=== PATIENT | female | born 1940 | race Caucasian/White ===

== ENCOUNTER 2020-02-21 19:43 | Inpatient (IN) | payer MEDICARE ==
[~2020-02-21] VITALS: Ht 157.5 cm; Wt 52.5 kg
[2020-02-21 20:00] VITALS: BP 119/48
[2020-02-21] MEDS ORDERED: ASPIRIN81 MG PO ×2 (20:14→20:28)
[2020-02-21] MEDS ORDERED: COREG12.5 MG PO ×2 (20:15→20:29)
[2020-02-21] MEDS ORDERED: LIPITOR40 MG PO ×2 (20:15→20:29)
[2020-02-21] MEDS ORDERED: COREG25 MG PO ×2 (20:17→20:29)
[2020-02-21] MEDS ORDERED: CELEXA20 MG PO (20:17)
[2020-02-21] MEDS ORDERED: FENOFIBRATE160 MG PO (20:18)
[2020-02-21] MEDS ORDERED: FERROUS SULFAT325 MG PO (20:18)
[2020-02-21] MEDS ORDERED: ALENDRONATE SOD35 MG PO (20:19)
[2020-02-21] MEDS ORDERED: MEGACE400 MG/10 PO (20:20)
[2020-02-21] MEDS ORDERED: REMERON15 MG PO (20:20)
[2020-02-21] MEDS ORDERED: ASCORBIC ACID500 MG PO (20:20)
[2020-02-21] MEDS ORDERED: VITAMIN D1000 UNIT (20:21)
[2020-02-21] MEDS ORDERED: CIPRO500 MG PO (20:21)
[2020-02-21] MEDS ORDERED: FAMOTIDINE10 MG PO (20:21)
[2020-02-21] MEDS ORDERED: GLUCOPHAGE500 MG PO (20:22)
[2020-02-21] MEDS ORDERED: GABAPENTIN300 MG PO (20:23)
[2020-02-21] MEDS ORDERED: VOLTAREN100 GM TOPICAL (20:23)
[2020-02-21] MEDS ORDERED: LANTUS INS100 UNITS/ SC (20:26)
[2020-02-21 20:27] LABS: BASOPHILS 0.2 % (0-2); EOSINOPHILS 1.1 % (0-7); HEMATOCRIT 30.7 % (36.0-48.0); HEMOGLOBIN 9.8 g/dL (12-16); IMMATURE GRANULOCYTES 1.1 % (0-5); LYMPHOCYTES 14.9 % (15-50); MCH 32.2 pg (26.0-34.0); MCHC 31.9 g/dL (31.0-37.0); MEAN PLATELET VOLUME 8.9 fL (7.4-10.4); MONOCYTES 6.6 % (2-11); NEUTROPHILS 76.1 % (40-80); PLATELET COUNT 298 10x3/uL (130-400); RBC 3.04 10x6/uL (4.00-5.40); WBC 11.4 10x3/uL (4.8-10.8)
[2020-02-21] MEDS ORDERED: HUMULIN R100 UNIT/1 (20:27)
[2020-02-21] MEDS ORDERED: ASPIRIN81 MG (20:30)
[2020-02-21 20:37] LABS: CALC OSMOLALITY 288 mosm/kg (275-300); CALCIUM 8.4 mg/dL (8.5-10.1); CARBON DIOXIDE 27.8 mmol/L (21.0-32.0); CHLORIDE - SERUM 110 mmol/L (98-107); CREATININE - SERUM 0.9 mg/dL (0.6-1.3); GLUCOSE 104 mg/dL (74-106); POTASSIUM - SERUM 3.5 mmol/L (3.5-5.1); SODIUM 144 mmol/L (136-145); UREA NITROGEN 19 mg/dL (7-18); eGFR NON AFRICAN AMERICAN 64 mL/min (90-120)
[2020-02-21 20:45] LABS: ALBUMIN 2.1 g/dL (3.4-5.0); ALKALINE PHOSPHATASE 82 U/L (30-120); ALT (SGPT) 45 U/L (10-68); AMYLASE - SERUM 69 U/L (25-115); BILIRUBIN - TOTAL 0.23 mg/dL (0.2-1.3); LIPASE 73 U/L (73-393); PROTEIN - SERUM 6.1 g/dL (6.4-8.2)
--- NOTE | 2020-02-21 20:45 | NUR ---
URINE SPECIMEN SENT TO LAB
[2020-02-21 20:46] LABS: TROPONIN-I < 0.017 ng/mL (0.000-0.060)
[2020-02-21 20:53] LABS: BILIRUBIN NEGATIVE (NEGATIVE); GLUCOSE 250 mg/dL (NEGATIVE); KETONE NEGATIVE (NEGATIVE); NITRITE NEGATIVE (NEGATIVE); SPECIFIC GRAVITY 1.015 (1.005-1.020); UROBILINOGEN NORMAL (NORMAL)
[2020-02-21 20:54] LABS: BACTERIA MODERATE /hpf (NEGATIVE); EPITHELIAL CELLS NSEEN /hpf (0-5); RED CELLS - URINE 0-5 /hpf (0-5); WHITE CELLS - URINE >50 /hpf (NEGATIVE)
--- NOTE | 2020-02-21 21:00 | NUR ---
PT LEFT ED VIA STRETCHER FOR CT
[2020-02-21 22:00] VITALS: BP 146/70
--- NOTE | 2020-02-21 22:30 | NUR ---
NAM CATH PLACED. PT TOLERATED WELL. PT RESTING ON SIDE. NO S/S OF ACUTE DISTRESS NOTED
[2020-02-21 23:00] VITALS: BP 132/59
--- NOTE | 2020-02-21 23:00 | NUR ---
PT RESTING ON BED. NO S/S OF ACUTE DISTRESS NOTED.
--- NOTE | 2020-02-21 23:56 | NUR ---
MERREM INFUSION COMPLETE AT THIS TIME
--- NOTE | 2020-02-22 01:17 | NUR ---
PT ARRIVED TO ROOM VIA BED. ALERT TO SELF. C/O ABD AND BACK PAIN. NEW 22G PIV RESITED TO LEFT FA X2 ATTEMPTS. FLUIDS INFUSING ORDERED. CALL LIGHT IN REACH. WILL CPOC.
[2020-02-22 01:50] VITALS: BP 150/73; BMI 20.5
[2020-02-22 05:01] LABS: BASOPHILS 0.2 % (0-2); EOSINOPHILS 1.6 % (0-7); HEMATOCRIT 29.9 % (36.0-48.0); HEMOGLOBIN 9.3 g/dL (12-16); IMMATURE GRANULOCYTES 1.6 % (0-5); LYMPHOCYTES 15.4 % (15-50); MCH 31.6 pg (26.0-34.0); MCHC 31.1 g/dL (31.0-37.0); MCV 101.7 fL (80.0-100.0); MEAN PLATELET VOLUME 9.1 fL (7.4-10.4); MONOCYTES 6.7 % (2-11); NEUTROPHILS 74.5 % (40-80); PLATELET COUNT 321 10x3/uL (130-400); RBC 2.94 10x6/uL (4.00-5.40); WBC 12.2 10x3/uL (4.8-10.8)
[2020-02-22 05:11] LABS: CALC OSMOLALITY 285 mosm/kg (275-300); CALCIUM 7.9 mg/dL (8.5-10.1); CARBON DIOXIDE 25.8 mmol/L (21.0-32.0); CHLORIDE - SERUM 110 mmol/L (98-107); CREATININE - SERUM 0.7 mg/dL (0.6-1.3); GLUCOSE 109 mg/dL (74-106); POTASSIUM - SERUM 3.1 mmol/L (3.5-5.1); SODIUM 143 mmol/L (136-145); eGFR NON AFRICAN AMERICAN 86 mL/min (90-120)
[2020-02-22 05:12] LABS: UREA NITROGEN 13 mg/dL (7-18)
--- NOTE | 2020-02-22 07:27 | NUR ---
PT ALERT AND ORIENTED, LYING IN BED ON RIGHT SIDE. SHE WAS SLEEPING PEACEFULLY WHEN I ENTERED ROOM WITH MEDICATIONS. UPON COMING AWAKE, PT BEGAN CRYING AND MOANING THAT SHE WAS IN PAIN. WILL ADMIN PAIN MEDICATION WHEN NEXT AVALIABLE. NO OTHER COMPLAINTS OR CONCERNS STATED, CL IN REACH,S RX2.
--- NOTE | 2020-02-22 09:29 | NUR ---
PT HAS BEEN CRYING FOR THE LAST HOUR, ADMINISTERED PAIN MEDICATIONS PER MD ORDER. SPOKE WITH RENATE MANDUJANO THIS DID NOT SEEM TO ALEVIATE THE PAIN. ORDERING NEW PAIN MEDICATION. CL IN REACH, SRX2.
[2020-02-22 10:12] VITALS: BP 144/64
--- NOTE | 2020-02-22 11:40 | NUR ---
I have reviewed this patient and I concur with the Shift Assessment completed by the Licensed Practical Nurse today this shift.
--- NOTE | 2020-02-22 12:16 | NUR ---
PT HAS CRIED NONSTOP FOR HOURS NOW, EVEN POST DILAUDID ADMINISTRATION. WHEN I ASKED PT HOW I COULD HELP SHE STATED "I DONT KNOW" AND THEN CRIED HARDER. ATTEMPTED TO CONSOLE IN VARIOUS WAYS, TRIED TO ASSIST WITH HER FOOD WELL. PT REFUSED TO EAT AND NO MEASURES WERE HELPING. INFORMED RENATE MANDUJANO.
[2020-02-22 13:04] VITALS: BP 128/59
--- NOTE | 2020-02-22 14:14 | NUR ---
PT TOOK HOME MEDICATIONS WHOLE IN PUDDING WITHOUT DIFFICULTY. SHE IS STILL CRYING. TRIED AGAIN TO COMFORT BUT NO METHODS ARE WORKING. CL INR EACH, SRX2.
--- NOTE | 2020-02-22 15:54 | NUR ---
PT FINALLY RESTING PEACEFULLY. HAS BEEN FOR ABOUT 30 MINUTES, PRIOR TO THIS SHE CRIED FOR 6 HOURS WITH VERY FEW STOPS IN BETWEEN. BREATHS EVEN REGUALR AND UNLABORED. CL INR EACH, SRX2.
--- NOTE | 2020-02-22 16:11 | NUR ---
PT IS AWAKE AND CRYING PERFUSELY ONCE AGAIN. SPOKE WITH DR. CHIN ON THE PHONE AND AGAIN ASKED WHAT I COULD DO TO HELP. HE STATED THAT IT IS EMOTIONAL DISTURBANCE FROM THE STROKE AND THAT THREE IS NOTHING WE CAN DO AT THIS TIME. CONSULTING DR. CROW PER HIS ORDER.
--- NOTE | 2020-02-22 17:58 | NUR ---
PT IS STILL ACTIVELY CRYING, RESTED PEACFULLY FOR ABOUT 15 MINUTES POST PAIN MED ADMINISTRATION. CL IN REACH, SRX2.
[2020-02-22 18:53] VITALS: BP 135/62
[2020-02-22 20:30] VITALS: BP 141/69
--- NOTE | 2020-02-22 23:13 | NUR ---
PT HAS BEEN RESTING PEACFULLY, IS NOT CRYING AT THIS TIME. RR EVEN AND UNLABORED. NO DISTRESS OBSERVED. NO NEEDS EXPREESED. CALL LIGHT IN REACH. WILL CPOC.
[2020-02-23 00:30] VITALS: BP 144/88
[2020-02-23 04:30] VITALS: BP 137/69
--- NOTE | 2020-02-23 07:30 | NUR ---
REPORT RECEIVED. ASSESSMENT COMPLETE PER FLOW SHEET. REFER FOR COMPLETE FINDINGS. PT CONFUSED X3 ATTEMPT TO REORIENT UNABLE TO STATE UNDERSTANDING. ATTEMPT TO CALL SON PER REQUEST WITH NO ANSWER. PT EDUCATION GIVEN TO STAY IN BED BED ALARM ON NO SLIP SOCKS WITHIN USE SIDE RAIL UP X2 CALL LIGHT WITHIN REACH.
[2020-02-23 10:37] VITALS: BP 106/47
[2020-02-23 11:53] VITALS: BMI 20.5
[2020-02-23 11:58] VITALS: Ht 157.5 cm; Wt 52.5 kg
[2020-02-23 13:55] LABS: HEMATOCRIT 32.1 % (36.0-48.0); MCH 31.7 pg (26.0-34.0); MCHC 31.2 g/dL (31.0-37.0); MCV 101.9 fL (80.0-100.0); MEAN PLATELET VOLUME 9.4 fL (7.4-10.4); PLATELET COUNT 365 10x3/uL (130-400); RBC 3.15 10x6/uL (4.00-5.40); RDW 14.2 % (11.5-14.5); WBC 10.7 10x3/uL (4.8-10.8)
[2020-02-23 13:59] LABS: ANION GAP 10.6 mmol/L (8-16); CALCIUM 7.8 mg/dL (8.5-10.1); CARBON DIOXIDE 24.9 mmol/L (21.0-32.0); CREATININE - SERUM 0.8 mg/dL (0.6-1.3); POTASSIUM - SERUM 3.5 mmol/L (3.5-5.1)
[2020-02-23 14:39] LABS: ANISOCYTOSIS OCC; BASOPHILS 1 % (0-2); EOSINOPHILS 1 % (0-7); LYMPHOCYTES 16 % (15-50); MONOCYTES 6 % (2-11); NEUTROPHILS 73 % (40-80); PLATELET ESTIMATE INCREASED
--- NOTE | 2020-02-23 19:16 | NUR ---
PT SEEMS CONFUSED WITH TIME AND SITUATION PT ATTEMPT TO GRAB AT MY NECK AND SAYS YOU HAVE NOT BEEN HERE IS THREE MONTHS PT IS NOW CRYING AND IO CAN NOT MAKE OUT WORDS BED LOW AND LOCKED CALL LIGHT IS WITH PT
[2020-02-23 19:47] VITALS: BP 138/89
--- NOTE | 2020-02-23 20:03 | NUR ---
PT TOLD TECH SHE WAS HURTING AND THAT I WOULD NOT GIVE HER PAIN MED PTY HAD NOT INFORMED ME OF HER PAIN DILAUDED GIVEN AT THIS TIME
--- NOTE | 2020-02-23 23:21 | NUR ---
CLEANED PT OF URINE CHECKED NAM PLACEMENT AND FLUSHED NAM WITH RETURN AND IN PLACE ABD IS NOT FIRM BUT PT CONTINUES TO MOAN IN PAIN AND CRY ATTEMPTED BED AYALA BUT PT CO BUTTOCK PAIN CLEANED AND TURNED PT
--- NOTE | 2020-02-23 23:23 | NUR ---
YUKO NOTED PT DOES NOT CRY UNTILL I ENTER THE ROOM
[2020-02-24 00:26] VITALS: BP 123/66
--- NOTE | 2020-02-24 05:51 | NUR ---
PT IMEDIATELY BEGINS TO WHIMPER LOUDLY BECOMING LOUDER WHEN I ENTER ROOM IM CONCERNED WITH HOW OFTEN SHE IS REQUIRING DILAUDID...AND SHE RANKS THE PAIN 10 EVERY TIME ASKED IM GOING TO TRY [place] IN
--- NOTE | 2020-02-24 07:00 | NUR ---
RECEIVED REPORT. ASSUMED CARE OF PATIENT. PATIENT RESTING IN BED, CONFUSED. CALL LIGHT WITHIN REACH. PATIENT STATES SHE FEELS OKAY THIS AM. BEDSIDE SHIFT REPORT COMPLETE. WHITE BOARD UPDATED, NO DISTRESS.
[2020-02-24 07:22] LABS: BASOPHILS 0.2 % (0-2); EOSINOPHILS 1.3 % (0-7); HEMATOCRIT 32.9 % (36.0-48.0); HEMOGLOBIN 10.3 g/dL (12-16); IMMATURE GRANULOCYTES 0.9 % (0-5); LYMPHOCYTES 14.6 % (15-50); MCH 31.8 pg (26.0-34.0); MCHC 31.3 g/dL (31.0-37.0); MCV 101.5 fL (80.0-100.0); MEAN PLATELET VOLUME 9.1 fL (7.4-10.4); MONOCYTES 10.2 % (2-11); NEUTROPHILS 72.8 % (40-80); PLATELET COUNT 355 10x3/uL (130-400); RBC 3.24 10x6/uL (4.00-5.40); RDW 14.2 % (11.5-14.5); WBC 8.4 10x3/uL (4.8-10.8)
[2020-02-24 07:36] LABS: CALC OSMOLALITY 290 mosm/kg (275-300); CALCIUM 7.9 mg/dL (8.5-10.1); CARBON DIOXIDE 22.2 mmol/L (21.0-32.0); CHLORIDE - SERUM 111 mmol/L (98-107); CREATININE - SERUM 0.7 mg/dL (0.6-1.3); GLUCOSE 152 mg/dL (74-106); POTASSIUM - SERUM 3.6 mmol/L (3.5-5.1); SODIUM 144 mmol/L (136-145); UREA NITROGEN 15 mg/dL (7-18); eGFR NON AFRICAN AMERICAN 86 mL/min (90-120)
--- NOTE | 2020-02-24 08:30 | NUR ---
SPOKE WITH ELDA HAHN DUE TO PATIENT COMPLAIN OF ABD PAIN, PATIENT WITH NAM CATHETER THAT IS LEAKING URINE AND NOTED THAT PREVIOUS UA COLLECTED WAS CONTAMINATED. WAITING FOR NEW ORDERS.
[2020-02-24 09:00] VITALS: BP 183/82
--- NOTE | 2020-02-24 10:50 | NUR ---
NEW ORDERS ACKNOWLEDGED FROM ELDA HAHN. BLADDER SCAN COMPLETE WITH 448ML IN BLADDER. NAM CATHETER REMOVED AND NOTED TO HAVE A LARGE STRINGY MUCOUS CLOT TO TIP OF CATHETER. 16FR NAM CATHETER PLACED VIA STERILE TECHNIQUE AND IMMEDIATELY RECEIVED 500 ML CLOUDY YELLOW URINE TO DRAINAGE BAG VIA GRAVITY. UA AND CULTURE OBTAINED FROM STERILE NEW NAM AND SENT TO LAB. PATIENT RESTING WITH EYES CLOSED AT THIS TIME. PATIENT STATES HER BELLY FEELS BETTER ALREADY. PATIENT IS RESTING PEACEFULLY. NO DISTRESS.
[2020-02-24 11:21] LABS: BACTERIA MODERATE /hpf (NEGATIVE); BILIRUBIN NEGATIVE (NEGATIVE); EPITHELIAL CELLS RARE /hpf (0-5); GLUCOSE 250 mg/dL (NEGATIVE); KETONE NEGATIVE (NEGATIVE); NITRITE NEGATIVE (NEGATIVE); UROBILINOGEN NORMAL (NORMAL); WHITE CELLS - URINE >50 /hpf (NEGATIVE)
[2020-02-24 11:22] LABS: AMORPHOUS SEDIMENT <1+ /lpf (NONE SEEN)
[2020-02-24 12:00] VITALS: BP 129/60
--- NOTE | 2020-02-24 15:00 | CN ---
PATIENT NAME:KAREN BURR MEDICAL RECORD: [id number] : 44 LOCATION:[facility] D.2108 ADMIT DATE: 02/21/20 ACCOUNT: [id number] CONSULTING PHYSICIAN: RIGO KATZ MD REFERRING PHYSICIAN: MARGOTH CHIN MD DATE OF CONSULTATION: 02/23/2020 IDENTIFYING DATA: The patient is 79 years old and she was admitted to the hospital secondary to urinary tract infection. CHIEF COMPLAINT: Confusion and agitation. HISTORY OF PRESENT ILLNESS: The patient is cooperative. She had a stroke about 3 weeks ago. She currently is not fully oriented and has had a great deal of mood lability. She does not have thoughts of harming herself or others. ASSESSMENT: Vascular dementia. PLAN: The patient will have her Remeron discontinued secondary to its strong antihistaminic properties. In addition to this, I am going to treat her with Trilafon for thought disorganization and a low dose of Klonopin for mood lability. I will continue to follow her and monitor her progress. TRANSINT:[id number] Voice Confirmation ID: [id number] DOCUMENT ID: [id number] RIGO KATZ MD at 1500 CC: [id number] DICTATION DATE: 02/23/20 1450 GENERAL DOC: 02/23/20 1645 ADM IN [id number] [place] [address]
[2020-02-24 16:47] VITALS: BP 126/57
--- NOTE | 2020-02-24 17:00 | NUR ---
PATIENTS SON AT BEDSIDE FOR A VISIT.
--- NOTE | 2020-02-24 17:51 | NUR ---
PATIENT CONSUMED 1/2 GLUCERNA FOR THIS CUSTODIAN ATHLETIC EQUIPMENT. NO DISTRESS. RESTING WELL. NO CRYING OUT. FC DRAINING YELLOW URINE WITH SEDEMENT NOTED, NO FURTHER LEAKING OF URINE AFTER CHANGING NAM CATHETER THIS AM.
--- NOTE | 2020-02-24 19:30 | NUR ---
PT IN BED, EYES CLOSED, RESP EVEN AND UNLABORED, NO DISTRESS NOTED, CL IN REACH, SR UP X 2. BED ALARM ON AT THIS TIME.
[2020-02-24 19:48] VITALS: BP 132/64
--- NOTE | 2020-02-25 02:38 | NUR ---
I have reviewed this patient and I concur with the Shift Assessment completed by the Licensed Practical Nurse today this shift.
[2020-02-25 04:55] VITALS: BP 118/51
[2020-02-25 06:14] LABS: BASOPHILS 0.3 % (0-2); EOSINOPHILS 0.5 % (0-7); HEMATOCRIT 30.2 % (36.0-48.0); HEMOGLOBIN 9.7 g/dL (12-16); IMMATURE GRANULOCYTES 0.5 % (0-5); LYMPHOCYTES 17.1 % (15-50); MCHC 32.1 g/dL (31.0-37.0); MCV 99.7 fL (80.0-100.0); MONOCYTES 7.7 % (2-11); NEUTROPHILS 73.9 % (40-80); PLATELET COUNT 415 10x3/uL (130-400); RBC 3.03 10x6/uL (4.00-5.40); RDW 14.4 % (11.5-14.5); WBC 7.8 10x3/uL (4.8-10.8)
[2020-02-25 06:31] LABS: CALC OSMOLALITY 285 mosm/kg (275-300); CALCIUM 8.1 mg/dL (8.5-10.1); CARBON DIOXIDE 24.5 mmol/L (21.0-32.0); CHLORIDE - SERUM 110 mmol/L (98-107); CREATININE - SERUM 0.7 mg/dL (0.6-1.3); GLUCOSE 75 mg/dL (74-106); POTASSIUM - SERUM 3.5 mmol/L (3.5-5.1); SODIUM 145 mmol/L (136-145); UREA NITROGEN 8 mg/dL (7-18); eGFR NON AFRICAN AMERICAN 86 mL/min (90-120)
[2020-02-25 09:53] VITALS: BP 149/68
--- NOTE | 2020-02-25 09:57 | MORECARE ---
CASE MANAGEMENT DISCHARGE SUMMARY PATIENT: KAREN BURR UNIT: [id number] ADM DATE: 02/21/20 AGE: 79 : 42 SEX: F ROOM/BED: D.9016 AUTHOR: NOE ARCE PHYSICIAN: REFERRING PHYSICIAN: MARGOTH CHIN MD DATE OF SERVICE: 02/25/20 Discharge Plan Patient Name: KAREN BURR [facility] [facility] 1940 Planned Disposition: SNF w Planned Readmission Anticipated Discharge Date: Discharge Date: Expected LOS: Initial Reviewer: [email or web address] Initial Review Date: 02/25/2020 Generated: 02/25/20 10:56 am External Providers External Provider: [facility] Next Contact Date: Service Request Date: Service Type: Resolution: Reviewer: Comments: Patient Name: KAREN BURR Page 07743 at 0957 All edits/amendments must be made on the electronic document DICTATION DATE: 02/25/2056 HEADING UP MACHINE OPERATOR: RICHARD 02/25/20 0956 RPT#: [id number] DC DATE: STATUS: ADM IN [facility] [address] [place] [address] END OF REPORT
--- NOTE | 2020-02-25 10:03 | MORECARE ---
CASE MANAGEMENT DISCHARGE SUMMARY PATIENT: KAREN BURR UNIT: [id number] ADM DATE: 02/21/20 AGE: 79 : 42 SEX: F ROOM/BED: D.2107 AUTHOR: NOE ARCE PHYSICIAN: REFERRING PHYSICIAN: MARGOTH CHIN MD DATE OF SERVICE: 02/25/20 Discharge Plan Patient Name: KAREN BURR [facility] [facility] 1940 Planned Disposition: SNF w Planned Readmission Anticipated Discharge Date: Discharge Date: Expected LOS: Initial Reviewer: [email or web address] Initial Review Date: 02/25/2020 Generated: 02/25/20 11:03 am DCPIA - Discharge Planning Initial Assessment Updated by [email or web address]: Babs Bailey on 02/25/20 9:57 am * Is the patient Alert and Oriented? No * How many steps to enter\exit or inside your home? 0/0 * PCP Dr. Rodriguez * Pharmacy [facility] * Preadmission Environment Shelter Facility * Facility Name [facility] * ADLs Partial Dependent * Partial ADLs (Assistance needed) Ambulation Bathing Dressing Medication Management Toileting Transfers * Equipment None * List name and contact numbers for known caregivers / representatives who currently or will assist patient after discharge: Zaid blankenship - [phone] * Verbal permission to speak to the caregivers and representatives has been obtained from the patient. Yes * Community resources currently utilized None * Additional services required to return to the preadmission environment? No * Can the patient safely return to the preadmission environment? Yes * Has this patient been hospitalized within the prior 30 days at any hospital? Yes Last DP export: 02/25/20 8:57 a Patient Name: KAREN BURR Page 66028 at 1003 All edits/amendments must be made on the electronic document DICTATION DATE: 02/25/20 1003 GAS MASK INSPECTOR: RICHARD 02/25/20 1003 RPT#: [id number] DC DATE: STATUS: ADM IN [facility] [address] [id number] END OF REPORT
--- NOTE | 2020-02-25 10:10 | MORECARE ---
CASE MANAGEMENT DISCHARGE SUMMARY PATIENT: KAREN BURR UNIT: [id number] ADM DATE: 02/21/20 AGE: 79 : 42 SEX: F ROOM/BED: D.6021 AUTHOR: CLAUDE,DOC PHYSICIAN: REFERRING PHYSICIAN: MARGOTH CHIN MD DATE OF SERVICE: 02/25/20 Discharge Plan Patient Name: KAREN BURR Facility: [facility]:[place] : 1940 Planned Disposition: SNF w Planned Readmission Anticipated Discharge Date: Discharge Date: Expected LOS: Initial Reviewer: [email or web address] Initial Review Date: 02/25/2020 Generated: 02/25/20 11:10 am Comments DCP- Discharge Planning Updated by [email or web address]: Babs Bailey on 02/25/20 9:[address] Patient Name: KAREN BURR Admission Status: ER Accout number: [id number] Admission Date: 02-21-2020 : 1940 Admission Diagnosis: Attending: MARGOTH CHIN Current LOS: 4 Anticipated DC Date: Planned Disposition: SNF w Planned Readmission Primary Insurance: [employer] CHOICE PPO MCR ADVANT Discharge Planning Comments: CM met with patient to discuss discharge planning/needs. She tells me she has been at [facility] "for awhile". I called her contact, Zaid Rider (son), for discharge planning/needs. He states she has been at [facility] for rehab for the last 4 days. He states plan is to return to [facility]. I informed the son that she would need to participate in therapy in order to return to [facility]. He states he will visit with her today and speak with her about that. I have ordered PT and OT evaluations. CM will continue to follow and assist with discharge planning/needs. Insurance Claims Supervisor: Babs Bailey DCPIA - Discharge Planning Initial Assessment Updated by [id number]: Babs Bailey on 02/25/20 9:57 am * Is the patient Alert and Oriented? No * How many steps to enter\\exit or inside your home? 0/0 * PCP Dr. Rodriguez * Pharmacy [facility] [address] * Preadmission Environment Assisted Facility [facility] * ADLs Partial Dependent * Partial ADLs (Assistance needed) Ambulation Bathing Dressing Medication Management Toileting Transfers * Equipment None * List name and contact numbers for known caregivers / representatives who currently or will assist patient after discharge: Zaid Rider - son - [phone] * Verbal permission to speak to the caregivers and representatives has been obtained from the patient. Yes * Community resources currently utilized None * Additional services required to return to the preadmission environment? No * Can the patient safely return to the preadmission environment? Yes * Has this patient been hospitalized within the prior 30 days at any hospital? Yes Coverage Notice Reviewer: [id number] Joseph Bailey Notice Issued Date-Time: 02/25/2020 10:04 Notice Type: Patient Choice Letter Notice Delivered To: Family Member Relationship to Patient: Son Low Voltage Technician Name: Zaid Rider Delivery Method: PHONE - Phone Jennifer Days: Prior Verbal Notification: Recipient Understood Notice: Yes Recipient Signature: Med Rec Note Co-signed by Attending: Coverage Notice Comment: [facility] Last DP export: 02/25/20 9:03 a Patient Name: KAREN BURR Page [phone] at 1010 All edits/amendments must be made on the electronic document DICTATION DATE: 02/25/20 1010 ACADEMIC SUPPORT ASSISTANT: RICHARD 02/25/20 1010 RPT#: [id number] DC DATE: STATUS: ADM IN [facility] [address] [place] [address] END OF REPORT
--- NOTE | 2020-02-25 11:24 | NUR ---
Nutrition Follow-up: Pt confused. Sitting up in bed eating breakfast this AM. Noted pt with 0-25% intake of meals yesterday; drank 1/2 Glucerna yesterday evening. Noted ST eval pending. Diet: Diabetic, Mech Soft PO intake: 42% avg x 6 meals Wt: 165# (02/24); 112.2# (02/22) Last BM: 02/23 Labs noted: Ca 8.1, Na 145 Meds noted: Glucophage, Miralax, Megace, Lantus, NS @ 50, electrolyte protocol -Encourage PO intake and honor food preferences within diet restrictions. -+Glucerna with meals. -Monitor wt; noted daily wts ordered. -RD following.
[2020-02-25 13:33] VITALS: BP 114/50
--- NOTE | 2020-02-25 14:51 | PN ---
PATIENT:KAREN BURR MEDICAL RECORD: [id number] LOCATION:D.[facility].210 ADMISSION DATE: 02/21/20 PROGRESS NOTE DATE OF SERVICE: 02/24/2020 SUBJECTIVE: The patient's case was discussed with staff. She has no new complaint. OBJECTIVE: The patient denies intent to harm herself or others. She is still very disorganized with poor insight about her situation. ASSESSMENT: Vascular dementia. PLAN: Current medicines have been reviewed and will be maintained. Long-term prognosis is guarded. TRANSINT:[id number] Voice Confirmation ID: [id number] DOCUMENT ID: [id number] RIGO KATZ MD at 1451 CC: [id number] DICTATION DATE: 02/24/20 1615 SUBSEA ENGINEER: 02/25/20 0025 ADM IN [facility] [address] [place] [address]
--- NOTE | 2020-02-25 15:52 | NUR ---
I have reviewed this patient and I concur with the Shift Assessment completed by the Licensed Practical Nurse today this shift.
--- NOTE | 2020-02-25 15:54 | NUR ---
BED BATH GIVEN AND COMPLETE LINEN CHANGE DONE.
--- NOTE | 2020-02-25 16:02 | NUR ---
MEPILEX TO COCCYX CHANGED.
--- NOTE | 2020-02-25 16:09 | NUR ---
FSBS 341. PT JUST ATE SOME GRHAMA CRACKERS. WILL CONTINUE TO MONITOR.
--- NOTE | 2020-02-25 18:58 | NUR ---
PT TEARFUL AND STATING SHE IS HURTING. DILAUDID GIVEN.
[2020-02-25 20:00] VITALS: BP 116/57
[2020-02-26] VITALS: BP 140/66
[2020-02-26 04:50] LABS: BASOPHILS 0.2 % (0-2); EOSINOPHILS 1.1 % (0-7); HEMATOCRIT 28.2 % (36.0-48.0); HEMOGLOBIN 8.9 g/dL (12-16); IMMATURE GRANULOCYTES 0.5 % (0-5); LYMPHOCYTES 21.8 % (15-50); MCH 31.6 pg (26.0-34.0); MCHC 31.6 g/dL (31.0-37.0); MEAN PLATELET VOLUME 8.8 fL (7.4-10.4); MONOCYTES 9.9 % (2-11); NEUTROPHILS 66.5 % (40-80); PLATELET COUNT 360 10x3/uL (130-400); RBC 2.82 10x6/uL (4.00-5.40); RDW 14.4 % (11.5-14.5)
[2020-02-26 05:04] LABS: CALCIUM 8.4 mg/dL (8.5-10.1); CARBON DIOXIDE 27.6 mmol/L (21.0-32.0); CHLORIDE - SERUM 108 mmol/L (98-107); CREATININE - SERUM 0.7 mg/dL (0.6-1.3); POTASSIUM - SERUM 3.2 mmol/L (3.5-5.1); SODIUM 142 mmol/L (136-145); eGFR NON AFRICAN AMERICAN 86 mL/min (90-120)
[2020-02-26 05:08] LABS: CALC OSMOLALITY 283 mosm/kg (275-300); GLUCOSE 137 mg/dL (74-106); UREA NITROGEN 11 mg/dL (7-18)
[2020-02-26 05:12] LABS: WBC 5.6 10x3/uL (4.8-10.8)
--- NOTE | 2020-02-26 07:30 | NUR ---
PT RESTING COMFORTABLY , EYES CLSOED, BREATHS EVEN/REGULAR/UNLABORED. NO SIGNS OR SYMPTOMS OF ACUTE DISTRESS NOTED AT THIS TIME. CL IN REACH,S RX2, BED ALARM ON AND ACTIVE WNL.
--- NOTE | 2020-02-26 08:05 | NUR ---
PT SON CALLED ASKING WHY PT HAS BRUISE ON DAVID. I WILL LOOK AT IT HSORTLY WHEN I DO HERMEDS AND ASSESMENT BUT I FINORMED PT IW UNSURE AND NOTHING WAS NOTED ABOUT AN INCIDENT HAPPENING, SO THE ORIGINS ARE UNLCEAR. BUT GIVEN TPS DEMNEOR, SHE COULD EASILY HAVE BEEN FLAILING HER ARMS ANDHIT THE RAILS, THEY COULDVE BEEN CUASED BY BLOOD DRAWS AND OR A VAST NUMBER OF OTHER SMALL INCIDENTS. PTS SON WAS SATISIFIED, WILL CONT TO MONITOR AND ASSES.
[2020-02-26 09:14] VITALS: BP 139/65
--- NOTE | 2020-02-26 10:01 | NUR ---
PT RESTING COMFORTABLY. WOKE UP TO TAKE MEDICATIONS. WENT RIGHT BACK TO SLEEP. CL INR EACH,SRX2. BED ALARM ON ACTIVE WNL
--- NOTE | 2020-02-26 10:51 | NUR ---
I have reviewed this patient and I concur with the Shift Assessment completed by the Licensed Practical Nurse today this shift.
--- NOTE | 2020-02-26 11:28 | MORECARE ---
CASE MANAGEMENT DISCHARGE SUMMARY PATIENT: KAREN BURR UNIT: [id number] ADM DATE: 02/21/20 AGE: 79 : 42 SEX: F ROOM/BED: D.6417 AUTHOR: CLAUDE,DOC PHYSICIAN: REFERRING PHYSICIAN: MARGOTH CHIN MD DATE OF SERVICE: 02/26/20 Discharge Plan Patient Name: KAREN BURR Facility: [facility]:[place] : 1940 Planned Disposition: SNF w Planned Readmission Anticipated Discharge Date: Discharge Date: Expected LOS: Initial Reviewer: [email or web address] Initial Review Date: 02/25/2020 Generated: 02/26/20 12:27 pm Comments DCP- Discharge Planning Updated by [email or web address]: Babs Bailey on 02/25/20 9:[address] Patient Name: KAREN BURR Admission Status: ER Accout number: [id number] Admission Date: 02-21-2020 : 1940 Admission Diagnosis: Attending: MARGOTH CHIN Current LOS: 4 Anticipated DC Date: Planned Disposition: SNF w Planned Readmission Primary Insurance: [employer] CHOICE PPO MCR ADVANT Discharge Planning Comments: CM met with patient to discuss discharge planning/needs. She tells me she has been at [facility] "for awhile". I called her contact, Zaid Rider (son), for discharge planning/needs. He states she has been at [facility] for rehab for the last 4 days. He states plan is to return to [facility]. I informed the son that she would need to participate in therapy in [facility]. He states he will visit with her today and speak with her about that. I have ordered PT and OT evaluations. CM will continue to follow and assist with discharge planning/needs. Broke Handler: Babs Bailey DCPIA - Discharge Planning Initial Assessment Updated by [email or web address]: Babs Bailey on 02/25/20 9:57 am * Is the patient Alert and Oriented? No * How many steps to enter\\exit or inside your home? 0/0 * PCP Dr. Rodriguez * Pharmacy [facility] [address] * Preadmission Environment Fdc Facility * Facility Name [facility] * ADLs Partial Dependent * Partial ADLs (Assistance needed) Ambulation Bathing Dressing Medication Management Toileting Transfers * Equipment None * List name and contact numbers for known caregivers / representatives who currently or will assist patient after discharge: Zaid Rider - son - [phone] * Verbal permission to speak to the caregivers and representatives has been obtained from the patient. Yes * Community resources currently utilized None * Additional services required to return to the preadmission environment? No * Can the patient safely return to the preadmission environment? Yes * Has this patient been hospitalized within the prior 30 days at any hospital? Yes External Providers [facility] [place] Next Contact Date: Service Request Date: Service Type: Resolution: Reviewer: Comments: Coverage Notice Reviewer: [id number] Joseph Bailey Notice Issued Date-Time: 02/25/2020 10:04 Notice Type: Patient Choice Letter Notice Delivered To: Family Member Relationship to Patient: Son Senior Technical Specialist Name: Zaid Rider Delivery Method: PHONE - Phone Jennifer Days: Prior Verbal Notification: Recipient Understood Notice: Yes Recipient Signature: Med Rec Note Co-signed by Attending: Coverage Notice Comment: [facility] Last DP export: 02/25/20 9:11 a Patient Name: KAREN BURR Page 95579 at 1128 All edits/amendments must be made on the electronic document DICTATION DATE: 02/26/201127 MANAGER COSMETICS: RICHARD 02/26/208 RPT#: [id number] DC DATE: STATUS: ADM IN [facility] [address] [place] [address] END OF REPORT
--- NOTE | 2020-02-26 11:35 | MORECARE ---
CASE MANAGEMENT DISCHARGE SUMMARY PATIENT: KAREN BURR UNIT: [id number] ADM DATE: 02/21/20 AGE: 79 : 42 SEX: F ROOM/BED: D.6236 AUTHOR: CLAUDE,DOC PHYSICIAN: REFERRING PHYSICIAN: MARGOTH CHIN MD DATE OF SERVICE: 02/26/20 Discharge Plan Patient Name: KAREN BURR Facility: [facility]:[place] : 1940 Planned Disposition: SNF w Planned Readmission Anticipated Discharge Date: Discharge Date: Expected LOS: Initial Reviewer: [email or web address] Initial Review Date: 02/25/2020 Generated: 02/26/20 12:34 pm Comments DCP- Discharge Planning Updated by [id number]: Babs Bailey on 02/26/20 10:[address] Received notice of possible discharge tomorrow. I faxed updated clinical to Ilda Barton and also [facility]. I called Ilda, liaison for [facility], and also spoke with Galilea and she will submit clinical for readmission. CM will continue to follow and assist with discharge planning/needs. DCP- Discharge Planning Updated by [email or web address]: Babs Bailey on 02/25/20 9:[address] Patient Name: KAREN BURR Admission Status: ER Accout number: [id number] Admission Date: 02-21-2020 : 1940 Admission Diagnosis: Attending: MARGOTH CHIN Current LOS: 4 Anticipated DC Date: Planned Disposition: SNF w Planned Readmission Primary Insurance: [employer] CHOICE PPO MCR [facility] Discharge Planning Comments: CM met with patient to discuss discharge planning/needs. She tells me she has been at [facility] "for awhile". I called her contact, Zaid Rider (son), for discharge planning/needs. He states she has been at [facility] for rehab for the last 4 days. He states plan is to return to [facility]. I informed the son that she would need to participate in therapy in order to return to alf. He states he will visit with her today and speak with her about that. I have ordered PT and OT evaluations. CM will continue to follow and assist with discharge planning/needs. Cushion Maker: Babs Bailey DCPIA - Discharge Planning Initial Assessment Updated by [email or web address]: Babs Bailey on 02/25/20 9:57 am * Is the patient Alert and Oriented? No * How many steps to enter\\exit or inside your home? 0/0 * PCP Dr. Rodriguez * Pharmacy [facility] [address] * Preadmission Environment Nursing Home Facility * Facility Name [facility] * ADLs Partial Dependent * Partial ADLs (Assistance needed) Ambulation Bathing Dressing Medication Management Toileting Transfers * Equipment None * List name and contact numbers for known caregivers / representatives who currently or will assist patient after discharge: Zaid Rider - son - [phone] * Verbal permission to speak to the caregivers and representatives has been obtained from the patient. Yes * Community resources currently utilized None * Additional services required to return to the preadmission environment? No * Can the patient safely return to the preadmission environment? Yes * Has this patient been hospitalized within the prior 30 days at any hospital? Yes Coverage Notice Reviewer: [id number] - Babs Bailey Notice Issued Date-Time: 02/25/2020 10:04 Notice Type: Patient Choice Letter Notice Delivered To: Family Member Relationship to Patient: Son Copyman Name: Zaid Rider Delivery Method: PHONE - Phone Jennifer Days: Prior Verbal Notification: Recipient Understood Notice: Yes Recipient Signature: Med Rec Note Co-signed by Attending: Coverage Notice Comment: [facility] Last DP export: 02/26/20 10:28 a Patient Name: KAREN BURR Page 73110 at 1135 All edits/amendments must be made on the electronic document DICTATION DATE: 02/26/20 1134 MALTHOUSE LABORER: RICHARD 02/26/20 1134 RPT#: [id number] DC DATE: STATUS: ADM IN [facility] [address] [place] [address] END OF REPORT
[2020-02-26 13:45] VITALS: BP 151/73
--- NOTE | 2020-02-26 15:06 | NUR ---
PT I/V INFILTRATED. REPLACED 20G TO LFA.
[2020-02-26 15:11] LABS: BILIRUBIN NEGATIVE (NEGATIVE); GLUCOSE 100 mg/dL (NEGATIVE); KETONE NEGATIVE (NEGATIVE); NITRITE NEGATIVE (NEGATIVE)
[2020-02-26 15:12] LABS: BACTERIA FEW /hpf (NEGATIVE); EPITHELIAL CELLS OCC /hpf (0-5); WHITE CELLS - URINE 25-50 /hpf (NEGATIVE); YEAST <1+ /hpf (NONE SEEN)
--- NOTE | 2020-02-26 15:23 | NUR ---
OT NOTE: EXTENSIVE TIME SPENT WITH PT TODAY. ASSISTED WITH BED BATH.. PT CONTINUES WITH LABILITY THROUGHOUT TMT, HOWEVER, TODAY WHILE ROLLING AND SUPINE TO SIT, PT CONTINUALLY C/O L HIP PAIN.. SHE WAS ABLE TO POINT TO PAIN EACH TIME (AT GREATER TROCHANTER )..PT WITH LESS PAIN WHEN LIEING ON BACK; INCREASED PAIN ON EITHER SIDE.. MAX ASSIST WITH SITTING BALANCE. EDUCATED CASH REGISTER BALANCER ON CLEANING OF PTS SPLINT.. THOROUGH CLEANING OF R HAND.. DISCUSSED WITH NURSING REGARDING POSSIBLE XRAY FOR L HIP.. PLACED PT ON R SIDE WITH L HIP ABDUCTED TO NEUTRAL WITH 2 PILLOWS. INCREASED PAIN REPORTED WITH L HIP ADDUCTION..PERFORMED PROM TO R UE (REMAINS FLACID).. JENNIFER VILLAVICENCIO, OTR/L [phone]
--- NOTE | 2020-02-26 16:42 | NUR ---
OT NOTE: PT COMPLETED RUE PROM TOLERATED. PT COMPLETED LUE AAROM TOLERATE. PT REQUIRED TOTAL A FOR RUE HYGIENE. 115-131 THANK YOU,CHRISTINE ROBERSON
[2020-02-26 16:57] VITALS: BP 105/45
[2020-02-26 20:00] VITALS: BP 121/60
--- NOTE | 2020-02-26 21:30 | NUR ---
REPORT RECEIVED AND ROUNDING COMPLETE. PATIENT LAYING IN BED ON RIGHT SIDE, EYES CLOSED, BREATHING SHALLOW AND UNLABORED, PAITNET EASILY WAKES I ENTERROOM TO GIVE PM MEDS. PATIENT ASKED TO HAVE HER MED GIVEN TO HER IN APPLESAUCE. GAVE MEDS THIS WAY, PATIENT WAS ABLE TO TAKE MEDS WITH NO DIFFICULTY. PATIENT IS WEARING NASAL CANNULA WITH O2 AT 2L, ALSO HAS A PIV IN HER LEFT FOREARM WITH FLUIDS RUNNING AT THIS TIME. PIV SHOWS NO S/SX OF INFILTRATION. PATIENT SHOWS NO S/SX OF DISTRESS AT THIS TIME. STATES NO NEEDS AT THIS TIME, HOPES TO GET A GOOD NIGHT OF SLEEP. CALL LIGHT WITHIN REACH AND BED IN LOWEST LOCKED POSITION.
[2020-02-27] VITALS: BP 134/63
[2020-02-27 04:00] VITALS: BP 154/65
[2020-02-27 04:57] LABS: BASOPHILS 0.3 % (0-2); EOSINOPHILS 2.3 % (0-7); HEMATOCRIT 30.4 % (36.0-48.0); HEMOGLOBIN 9.7 g/dL (12-16); IMMATURE GRANULOCYTES 0.6 % (0-5); LYMPHOCYTES 22.9 % (15-50); MCH 32.4 pg (26.0-34.0); MCHC 31.9 g/dL (31.0-37.0); MCV 101.7 fL (80.0-100.0); MEAN PLATELET VOLUME 9.1 fL (7.4-10.4); MONOCYTES 10.8 % (2-11); NEUTROPHILS 63.1 % (40-80); PLATELET COUNT 423 10x3/uL (130-400); RBC 2.99 10x6/uL (4.00-5.40); RDW 14.7 % (11.5-14.5)
[2020-02-27 05:13] LABS: CALCIUM 8.4 mg/dL (8.5-10.1); CARBON DIOXIDE 26.7 mmol/L (21.0-32.0); CHLORIDE - SERUM 108 mmol/L (98-107); CREATININE - SERUM 0.7 mg/dL (0.6-1.3); POTASSIUM - SERUM 3.9 mmol/L (3.5-5.1); SODIUM 140 mmol/L (136-145); eGFR NON AFRICAN AMERICAN 86 mL/min (90-120)
[2020-02-27 05:16] LABS: CALC OSMOLALITY 275 mosm/kg (275-300); GLUCOSE 76 mg/dL (74-106); UREA NITROGEN 8 mg/dL (7-18)
[2020-02-27 08:42] VITALS: BP 145/65
--- NOTE | 2020-02-27 12:10 | NUR ---
Nutrition Follow-up: Overall good/fair PO intake. Diet: Diabetic, Mech Soft with Chopped Meats, Glucerna TID PO intake: 50-100% WT: 115# (02/26); 117.9# (02/23); 112.2# (02/22) Labs reviewed Meds noted: Glucophage, Miralax, Megace, Lantus, NS @ 50, electrolyte protocol -Encourage PO intake and honor food preferences within diet restrictions. -Monitor wt; noted daily wts ordered. -RD following.
[2020-02-27] MEDS ORDERED: DIFLUCAN100 MG PO (12:25)
[2020-02-27] MEDS ORDERED: FLOMAX0.4 MG PO (12:26)
[2020-02-27] MEDS ORDERED: COREG12.5 MG PO (12:26)
--- NOTE | 2020-02-27 12:27 | NUR ---
OT NOTE: EXTENSIVE TMT TIME REQUIRED TODAY WITH ASSIST OF KING.. PT CONTINUES WITH LABILITY BUT ALSO REPORTS PAIN IN SAME LOCATIONS YESTERDAY. PT HAD APPARENTLY SLEPT ON AFFECTED ARM AND IT WAS EXTREMELY EDEMATOUS. PT REQUESTING TO EAT BUT DOES REQUIRE ASSIST AND CUES. CLEANED PT SHE HAD LARGE LIQUID BM; SUPINE TO SIT WITH MAX ASSIST; MAX ASSIST TO MAINTAIN STATIC SITTING BALANCE. MAX ASSIST WITH ALL DRESSING. MAX X 2 FOR TRANSFER TO CHAIR. REPOSITIONED PT SEVERAL TIMES DUE TO REPORTED HIP, ARM , AND ABD PAIN. EXPLAINED TO PT THAT IT WAS IMPORTANT FOR HER TO BE UP IN THE CHAIR FOR TO ASSIST IWTH STRENGTH/ENDURANCE. NUMEROUS PILLOWS PLACED TO B SIDES AND BACK TO ASSIST WITH UPRIGHT POSITION AND PAIN. WARMED PTS FOOD AND ENCOURAGED PT TO USE L HAND.. PT DOES HAVE SOME VISUAL FIELD DEFECITS BUT NOT FULLY TESTED AT THIS TIME. PT CONTINUED TMT AND ASSISTED PT WITH FEEDING AND PROVIDED CUES FOR CLEARING R SIDE OF CHEEK SHE POCKETS FOOD . JENNIFER VILLAVICENCIO, OTR/L [phone]
[2020-02-27] MEDS ORDERED: BACTRIM 400-801 TAB PO (12:28)
--- NOTE | 2020-02-27 13:10 | MORECARE ---
CASE MANAGEMENT DISCHARGE SUMMARY PATIENT: KAREN BURR UNIT: [id number] ADM DATE: 02/21/20 AGE: 79 : 42 SEX: F ROOM/BED: D.0226 AUTHOR: CLAUDE,DOC PHYSICIAN: REFERRING PHYSICIAN: MARGOTH CHIN MD DATE OF SERVICE: 02/27/20 Discharge Plan Patient Name: KAREN BURR Facility: [facility]:[place] : 1940 Planned Disposition: SNF w Planned Readmission Anticipated Discharge Date: Discharge Date: Expected LOS: Initial Reviewer: [email or web address] Initial Review Date: 02/25/2020 Generated: 02/27/20 2:10 pm Comments DCP- Discharge Planning Updated by [email or web address]: Babs Bailey on 02/27/20 12:[address] [facility] and [facility] state they have insurance authorization to accept today. States they will call back with a bean picker time. She will be discharging to a skilled (Medicare) bed. DC orders and MAR faxed. I called patient's son and he is in agreement to discharge. I explained to him the IMM, voiced understanding, informed it would be delivered certified mail to his home. Discharge today to a skilled bed at [facility] Rehab. DCP- Discharge Planning Updated by [email or web address]: Babs Bailey on 02/26/20 10:[address] Received notice of possible discharge tomorrow. I faxed updated clinical to Ilda Barton and also [facility]. I called Ilda, liaison for [facility], and also spoke with Galilea and she will submit clinical for readmission. CM will continue to follow and assist with discharge planning/needs. DCP- Discharge Planning Updated by [email or web address]: Babs Bailey on 02/25/20 9:[address] Patient Name: KAREN BURR Admission Status: ER Accout number: [id number] Admission Date: 02-21-2020 : 1940 Admission Diagnosis: Attending: MARGOTH CHIN Current LOS: 4 Anticipated DC Date: Planned Disposition: SNF w Planned Readmission Primary Insurance: [employer] CHO[employer] PPO MCR ADVANT Discharge Planning Comments: CM met with patient to discuss discharge planning/needs. She tells me she has been at [facility] "for awhile". I called her contact, Zaid Rider (son), for discharge planning/needs. He states she [facility]. He states plan is to return to [facility]. I informed the son that she would need to participate in therapy in order to return to shelter. He states he will visit with her today and speak with her about that. I have ordered PT and OT evaluations. CM will continue to follow and assist with discharge planning/needs. Tack Picker: Babs Bailey DCPIA - Discharge Planning Initial Assessment Updated by [id number]: Babs Bailey on 02/25/20 9:57 am * Is the patient Alert and Oriented? No * How many steps to enter\\exit or inside your home? 0/0 * PCP Dr. Rodriguez * Pharmacy [facility] on [address] * Preadmission Environment [facility] * Facility Name [facility] * ADLs Partial Dependent * Partial ADLs (Assistance needed) Ambulation Bathing Dressing Medication Management Toileting Transfers * Equipment None * List name and contact numbers for known caregivers / representatives who currently or will assist patient after discharge: Zaid Rider - son - [phone] * Verbal permission to speak to the caregivers and representatives has been obtained from the patient. Yes * Community resources currently utilized None * Additional services required to return to the preadmission environment? No * Can the patient safely return to the preadmission environment? Yes * Has this patient been hospitalized within the prior 30 days at any hospital? Yes Coverage Notice Reviewer: [email or web address] - Babs Bailey Notice Issued Date-Time: 02/25/2020 10:04 Notice Type: Patient Choice Letter Notice Delivered To: Family Member Relationship to Patient: Son Accountant Auditor Name: Zaid Rider Delivery Method: PHONE - Phone Jennifer Days: Prior Verbal Notification: Recipient Understood Notice: Yes Recipient Signature: Med Rec Note Co-signed by Attending: Coverage Notice Comment: [facility] Last DP export: 02/26/20 10:35 a Patient Name: KAREN BURR Page 10626 at 1310 All edits/amendments must be made on the electronic document DICTATION DATE: 02/27/201309 WHEEL ALIGNMENT MECHANIC: RICHARD 02/27/201309 RPT#: [id number] DC DATE: STATUS: ADM IN [facility] [address] [place] [address] END OF REPORT
[2020-02-27 13:21] VITALS: BP 115/47
--- NOTE | 2020-02-27 14:10 | NUR ---
PT DISCHARGED TO [facility] VIA WHEELCHAIR. PIV REMOVED WITH CATHETER TIP FULLY INTACT. NAM LEFT IN PLACE PER ORDER.
--- NOTE | 2020-02-27 16:34 | NUR ---
OT NOTE: PT COMPLETED LB HYGIENE WITH MAX A X2. PT COMPLETED UB HYGIENE TASKS WITH MAX S. PT REQUIRED TOTAL A WITH RUE POSITIONING. PT REQUIRED SET UP AND CUES FOR SELF FEEDING WITH LUE. PT REQUIRED OBSERVATION FOR INCREASED SAFETY. PT COMPLETED BED TO CHAIR TRANSFER WITH TOTAL A. [phone] DESHAWN LARRY COTA
--- NOTE | 2020-03-01 16:29 | MORECARE ---
CASE MANAGEMENT DISCHARGE SUMMARY PATIENT: KAREN BURR UNIT: [id number] ADM DATE: 02/21/20 AGE: 79 : 42 SEX: F ROOM/BED: D.7617 AUTHOR: CLAUDE,DOC PHYSICIAN: REFERRING PHYSICIAN: MARGOTH CHIN MD DATE OF SERVICE: 03/01/20 Discharge Plan Patient Name: KAREN BURR Facility: [facility]:[place] : 1940 Planned Disposition: SNF w Planned Readmission Anticipated Discharge Date: Discharge Date: 02/27/2020 Expected LOS: Initial Reviewer: [email or web address] Initial Review Date: 02/25/2020 Generated: 03/01/20 5:28 pm Comments DCP- Discharge Planning Updated by [email or web address]: Babs Bailey on 02/27/20 12:[address] [facility] and they state they have insurance authorization to accept today. States they will call back with a steel pickler time. She will be discharging to a skilled (Medicare) bed. DC orders and MAR faxed. I called patient's son and he is in agreement to discharge. I explained to him the IMM, voiced understanding, informed it would be delivered certified mail to his home. Discharge today to a skilled bed at [facility] Rehab. DCP- Discharge Planning Updated by [id number]: Babs Bailey on 02/26/20 10:[address] Received notice of possible discharge tomorrow. I faxed updated clinical to Ilda Barton and also [facility]. I called Ilda, liaison for [facility], and also spoke with Galilea and she will submit clinical for readmission. CM will continue to follow and assist with discharge planning/needs. DCP- Discharge Planning Updated by [email or web address]: Babs Bailey on 02/25/20 9:[address] Patient Name: KAREN BURR Admission Status: ER Accout number: [id number] Admission Date: 02-21-2020 : 1940 Admission Diagnosis: Attending: MARGOTH CHIN Current LOS: 4 Anticipated DC Date: Planned Disposition: SNF w Planned Readmission Primary Insurance: [employer] CHOICE PPO MCR ADVANT Discharge Planning Comments: CM met with patient to discuss discharge planning/needs. She tells me she has been at [facility] "for awhile". I called her contact, Zaid Rider (son), for discharge planning/needs. He states she [facility] the last 4 [facility]. He states plan is to return to [facility]. I informed the son that she would need to participate in therapy in order to return to senior care. He states he will visit with her today and speak with her about that. I have ordered PT and OT evaluations. CM will continue to follow and assist with discharge planning/needs. Claims Account Specialist: Babs Bailey DCPIA - Discharge Planning Initial Assessment Updated by [email or web address]: Babs Bailey on 02/25/20 9:57 am * Is the patient Alert and Oriented? No * How many steps to enter\\exit or inside your home? 0/0 * PCP Dr. Rodriguez * Pharmacy [facility] on [address] * Preadmission Environment [facility] * Facility Name [facility] * ADLs Partial Dependent * Partial ADLs (Assistance needed) Ambulation Bathing Dressing Medication Management Toileting Transfers * Equipment None * List name and contact numbers for known caregivers / representatives who currently or will assist patient after discharge: Zaid Rider - son - [phone] * Verbal permission to speak to the caregivers and representatives has been obtained from the patient. Yes * Community resources currently utilized None * Additional services required to return to the preadmission environment? No * Can the patient safely return to the preadmission environment? Yes * Has this patient been hospitalized within the prior 30 days at any hospital? Yes Coverage Notice Reviewer: [email or web address] - Babs Bailey Notice Issued Date-Time: 02/25/2020 10:04 Notice Type: Patient Choice Letter Notice Delivered To: Family Member Relationship to Patient: Son Supervisor Blood Donor Recruiters Name: Zaid Rider Delivery Method: PHONE - Phone Jennifer Days: Prior Verbal Notification: Recipient Understood Notice: Yes Recipient Signature: Med Rec Note Co-signed by Attending: Coverage Notice Comment: [facility] Last DP export: 02/27/20 12:10 p Patient Name: KAREN BURR Page [id number] at 1629 All edits/amendments must be made on the electronic document DICTATION DATE: 03/01/201628 WIRE STRETCHER: RICHARD 03/01/20 1629 RPT#: [id number] DC DATE:02/27/20 STATUS: DIS IN [facility] [address] [place] [address] END OF REPORT
== END 2020-02-27 14:14 | DRG 689 ==
LOC: D.ER 19:43 → D.M2 22:31
PROVIDERS: Emergency Medicine; Family Medicine; ADMIT Internal Medicine Nephrology; ATTEND Internal Medicine Nephrology
DX: N39.0 Urinary tract infection, site not specified (principal); G93.41 Metabolic encephalopathy; N17.9 Acute kidney failure, unspecified; I69.351 Hemiplegia and hemiparesis following cerebral infarction affecting right dominant side; F01.51 Vascular dementia, unspecified severity, with behavioral disturbance; D53.9 Nutritional anemia, unspecified; K59.00 Constipation, unspecified; E11.9 Type 2 diabetes mellitus without complications; I10 Essential (primary) hypertension; E87.6 Hypokalemia; K21.9 Gastro-esophageal reflux disease without esophagitis; I69.319 Unspecified symptoms and signs involving cognitive functions following cerebral infarction; E78.5 Hyperlipidemia, unspecified

== ENCOUNTER 2020-03-07 13:55 | Emergency (ER) | payer MEDICARE ==
[~2020-03-07] VITALS: Ht 157.5 cm; Wt 61.4 kg
[~2020-03-07 13:55] MED LIST: ALENDRONATE SOD35 MG PO; ASCORBIC ACID500 MG PO; ASPIRIN81 MG; ASPIRIN81 MG PO; BACTRIM 400-801 TAB PO; CELEXA20 MG PO; CIPRO500 MG PO; COREG12.5 MG PO; COREG25 MG PO; DIFLUCAN100 MG PO; FAMOTIDINE10 MG PO; FENOFIBRATE160 MG PO; FERROUS SULFAT325 MG PO; FLOMAX0.4 MG PO; GABAPENTIN300 MG PO; GLUCOPHAGE500 MG PO; HUMULIN R100 UNIT/1; LANTUS INS100 UNITS/ SC; LIPITOR40 MG PO; MEGACE400 MG/10 PO; REMERON15 MG PO; VITAMIN D1000 UNIT; VOLTAREN100 GM TOPICAL
[2020-03-07 14:05] VITALS: Ht 157.5 cm; Wt 61.4 kg
[2020-03-07 15:03] LABS: BASOPHILS 0.4 % (0-2); EOSINOPHILS 1.6 % (0-7); HEMATOCRIT 33.5 % (36.0-48.0); HEMOGLOBIN 10.5 g/dL (12-16); IMMATURE GRANULOCYTES 0.7 % (0-5); LYMPHOCYTES 26.6 % (15-50); MCH 31.8 pg (26.0-34.0); MCHC 31.3 g/dL (31.0-37.0); MCV 101.5 fL (80.0-100.0); MEAN PLATELET VOLUME 8.7 fL (7.4-10.4); MONOCYTES 10.9 % (2-11); NEUTROPHILS 59.8 % (40-80); PLATELET COUNT 404 10x3/uL (130-400); RDW 14.8 % (11.5-14.5); WBC 6.7 10x3/uL (4.8-10.8)
[2020-03-07 15:08] LABS: INR 1.08 (0.85-1.17); PROTIME 13.9 SECONDS (11.6-15.0)
[2020-03-07 15:18] LABS: ANION GAP 13.7 mmol/L (8-16); CALCIUM 9.6 mg/dL (8.5-10.1); CARBON DIOXIDE 26.4 mmol/L (21.0-32.0); CREATININE - SERUM 0.8 mg/dL (0.6-1.3); POTASSIUM - SERUM 4.1 mmol/L (3.5-5.1)
[2020-03-07 17:09] VITALS: BP 117/75
== END 2020-03-07 17:20 ==
LOC: D.ER 13:55
PROVIDERS: Family Medicine
DX: S30.0XXA Contusion of lower back and pelvis, initial encounter (principal); S70.00XA Contusion of unspecified hip, initial encounter; S50.02XA Contusion of left elbow, initial encounter; W19.XXXA Unspecified fall, initial encounter; Y93.9 Activity, unspecified; Y92.129 Unspecified place in nursing home as the place of occurrence of the external cause; S09.90XA Unspecified injury of head, initial encounter; E11.65 Type 2 diabetes mellitus with hyperglycemia; Z86.73 Personal history of transient ischemic attack (TIA), and cerebral infarction without residual deficits; K21.9 Gastro-esophageal reflux disease without esophagitis; Z79.84 Long term (current) use of oral hypoglycemic drugs